=== PATIENT | female | born 1965 | race Caucasian/White ===

== ENCOUNTER 2022-07-14 18:12 | Inpatient (IN) | payer OTHER ==
[~2022-07-14] VITALS: Ht 152.4 cm; Wt 51.6 kg
[2022-07-14] MEDS ORDERED: METOCLOPRAMIDE HCL 5 MG/ML 2 ML VIAL IVP ONE (20:30)
[2022-07-14] MEDS ORDERED: SODIUM CHLORIDE 0.9% 1,000 ML IV ONE (20:30)
[2022-07-14 20:33] LABS: BASOPHILS % (AUTO) 0.8 % (0.0-2.0); EOSINOPHILS % (AUTO) 0.3 % (1.0-6.0); HEMATOCRIT 33.7 % (36-46); HEMOGLOBIN 10.7 g/dL (12.0-16.0); LYMPHOCYTES # (AUTO) 2.1 K/uL (1.0-4.8); LYMPHOCYTES % (AUTO) 25.1 % (22.0-44.0); MEAN CORPUSCULAR HEMOGLOBIN 22.7 pg (26.0-34.0); MEAN CORPUSCULAR HGB CONC 31.7 G/dL (31.0-37.0); MEAN CORPUSCULAR VOLUME 72 fL (80-100); MONOCYTES # (AUTO) 0.7 K/uL (0.1-1.0); MONOCYTES % (AUTO) 8.9 % (2.0-9.0); NEUTROPHILS # (AUTO) 5.4 K/uL (1.8-7.7); NEUTROPHILS % (AUTO) 64.9 % (40.0-70.0); PLATELET COUNT (AUTO) 389 K/uL (150-450); RED BLOOD CELL COUNT(AUTO) 4.72 MIL/uL (4.00-5.20); RED CELL DISTRIBUTION WIDTH 18.4 % (11.5-14.5)
[2022-07-14 20:40] LABS: ANION GAP 9 mmol/L (8-16); CALCIUM, TOTAL 9.1 mg/dL (8.8-10.5); CARBON DIOXIDE 27 mmol/L (22-29); CHLORIDE 103 mmol/L (98-107); CREATININE 0.52 mg/dL (0.60-1.30); GLOMERULAR FILTR. RATE CALC > 60 mL/min (>60); GLUCOSE,RANDOM 98 mg/dL (70-110); POTASSIUM 3.4 mmol/L (3.5-5.1); SODIUM SERUM 139 mmol/L (136-145); UREA NITROGEN, BLOOD 11 mg/dL (7-18)
[2022-07-14 20:46] LABS: ALANINE AMINOTRANSFERASE 35 U/L (12-78); ALKALINE PHOSPHATASE 118 U/L (46-116); ASPARTATE AMINOTRANSFERASE 28 U/L (15-37); BILIRUBIN,TOTAL 0.5 mg/dL (0.1-1.0); LIPASE 136 U/L (73-393); TOTAL PROTEIN, SERUM 7.3 g/dL (6.4-8.2)
[2022-07-14 21:57] LABS: COVID AG,FIA SOURCE NASAL SWAB
[2022-07-14] MEDS ORDERED: POTASSIUM CHLORIDE 10% 40 MEQ/30 ML LIQUID UDCUP PO ONE (22:45)
[2022-07-14] MEDS: HEPARIN SODIUM,PORCINE 5,000 UNITS/ML VIAL SQ SCH (23:11)
[2022-07-14 23:20] LABS: AMPHET/METH SCREEN,URINE POSITIVE (NEGATIVE); APPEARANCE,URINE CLEAR (CLEAR); BARBITURATE SCREEN, URINE NEGATIVE (NEGATIVE); BENZODIAZEPINES SCREEN,URINE POSITIVE (NEGATIVE); CANNABINOID SCREEN,URINE NEGATIVE (NEGATIVE); COCAINE SCREEN,URINE NEGATIVE (NEGATIVE); GLUCOSE, URINE (UA) NEGATIVE (NEGATIVE); METHADONE SCREEN, URINE NEGATIVE (NEGATIVE); OPIATE SCREEN,URINE POSITIVE (NEGATIVE); PHENCYCLIDINE SCREEN,URINE NEGATIVE (NEGATIVE); PROTEIN,URINE NEGATIVE (NEGATIVE); SPECIFIC GRAVITIY, URINE 1.025 (1.003-1.030)
[2022-07-14 23:21] LABS: BILIRUBIN,URINE NEGATIVE (NEGATIVE); KETONES,URINE NEGATIVE (NEGATIVE); LEUKOCYTE ESTERASE ,URINE NEGATIVE (NEGATIVE); NITRATE,URINE NEGATIVE (NEGATIVE); OCCULT BLOOD,URINE NEGATIVE (NEGATIVE); UROBILINOGEN,URINE <=1.0 mg/dL (<=1.0)
[2022-07-14 23:30] LABS: RETICULOCYTE % (AUTO) 1.4 % (0.5-2.3)
[2022-07-14] MEDS: KETOROLAC TROMETHAMINE 15 MG/ML VIAL IVP PRN (23:43)
[2022-07-14] MEDS: ONDANSETRON HCL 4 MG/2 ML VIAL IVP PRN (23:43)
[2022-07-14 23:53] VITALS: BP 157/102
[2022-07-15] MEDS: CloNIDine HCL 0.1 MG TABLET PO PRN ×4 (00:02→23:44)
[2022-07-15 00:07] LABS: % IRON SATURATION 12.5 % (22-44); IRON, SERUM 55 mcg/dL (50-175); TOTAL IRON BINDING CAPACITY 439 mcg/dL (250-450)
[2022-07-15 05:13] VITALS: BP 154/94
[2022-07-15] MEDS: LORazepam 0.5 MG TABLET PO PRN ×3 (05:30→22:27)
[2022-07-15] MEDS ORDERED: LOPERAMIDE HCL 2 MG CAPSULE PO ONE (05:30)
[2022-07-15 07:51] VITALS: BP 164/97
[2022-07-15] MEDS: HEPARIN SODIUM,PORCINE 5,000 UNITS/ML VIAL SQ SCH ×3 (08:13→23:44)
[2022-07-15] MEDS: DOCUSATE SODIUM 100 MG CAPSULE PO SCH ×3 (08:13→20:16)
[2022-07-15] MEDS: ACETAMINOPHEN 325 MG TABLET PO PRN (08:19)
[2022-07-15 10:48] VITALS: BP 122/83
[2022-07-15 15:14] VITALS: BP 119/79
[2022-07-15 20:40] VITALS: BP 156/100
[2022-07-15] MEDS ORDERED: MELATONIN 3 MG TABLET PO PRN (20:45)
[2022-07-15 23:42] VITALS: BP 165/106
[2022-07-15] MEDS: ONDANSETRON HCL 4 MG/2 ML VIAL IVP PRN (23:44)
[2022-07-16] MEDS: KETOROLAC TROMETHAMINE 15 MG/ML VIAL IVP PRN (02:19)
[2022-07-16 05:58] VITALS: BP 139/97
[2022-07-16] MEDS: ACETAMINOPHEN 325 MG TABLET PO PRN (06:17)
[2022-07-16 08:06] VITALS: BP 153/100
[2022-07-16] MEDS: DOCUSATE SODIUM 100 MG CAPSULE PO SCH (08:09)
[2022-07-16] MEDS: HEPARIN SODIUM,PORCINE 5,000 UNITS/ML VIAL SQ SCH (08:09)
[2022-07-16] MEDS ORDERED: NICO-650 TP (13:41)
[2022-07-16] MEDS ORDERED: HYDR-3831 PO (13:42)
== END 2022-07-16 14:30 | DRG 641 ==
LOC: EMS 18:15 → 6S 22:35
PROVIDERS: ADMIT Internal Medicine; ATTEND Internal Medicine
DX: E87.6 Hypokalemia (principal); F19.239 Other psychoactive substance dependence with withdrawal, unspecified; F17.200 Nicotine dependence, unspecified, uncomplicated; Z20.822 Contact with and (suspected) exposure to COVID-19
CPT/HCPCS: 80053; 80307; 81003; 83540; 83550; 83690; 84132; 84484; 85025; 85045; 93005; 99285; G0480; J1644; J1885; J2405; J2765; J7030

== ENCOUNTER 2022-07-17 18:29 | Inpatient (IN) | payer OTHER ==
[~2022-07-17] VITALS: Ht 152.4 cm; Wt 59.3 kg
[~2022-07-17 18:29] MED LIST: HYDR-3831 PO; NICO-650 TP
[2022-07-17] MEDS ORDERED: ACETAMINOPHEN 325 MG TABLET PO PRN (23:30)
[2022-07-17] MEDS ORDERED: ONDANSETRON HCL 4 MG/2 ML VIAL IVP PRN (23:30)
[2022-07-17 23:48] LABS: BASOPHILS % (AUTO) 0.4 % (0.0-2.0); EOSINOPHILS % (AUTO) 0.2 % (1.0-6.0); HEMATOCRIT 41.3 % (36-46); HEMOGLOBIN 13.3 g/dL (12.0-16.0); LYMPHOCYTES # (AUTO) 3.5 K/uL (1.0-4.8); LYMPHOCYTES % (AUTO) 20.3 % (22.0-44.0); MEAN CORPUSCULAR HEMOGLOBIN 22.8 pg (26.0-34.0); MEAN CORPUSCULAR HGB CONC 32.2 G/dL (31.0-37.0); MEAN CORPUSCULAR VOLUME 71 fL (80-100); MONOCYTES # (AUTO) 1.5 K/uL (0.1-1.0); MONOCYTES % (AUTO) 8.8 % (2.0-9.0); NEUTROPHILS % (AUTO) 70.3 % (40.0-70.0); PLATELET COUNT (AUTO) 496 K/uL (150-450); RED BLOOD CELL COUNT(AUTO) 5.83 MIL/uL (4.00-5.20); RED CELL DISTRIBUTION WIDTH 18.2 % (11.5-14.5)
[2022-07-17 23:57] LABS: ANION GAP 12 mmol/L (8-16); CALCIUM, TOTAL 9.8 mg/dL (8.8-10.5); CARBON DIOXIDE 30 mmol/L (22-29); CHLORIDE 95 mmol/L (98-107); CREATININE 0.67 mg/dL (0.60-1.30); GLOMERULAR FILTR. RATE CALC > 60 mL/min (>60); GLUCOSE,RANDOM 108 mg/dL (70-110); POTASSIUM 3.2 mmol/L (3.5-5.1); SODIUM SERUM 137 mmol/L (136-145); UREA NITROGEN, BLOOD 21 mg/dL (7-18)
[2022-07-18] MEDS ORDERED: HEPARIN SODIUM,PORCINE 5,000 UNITS/ML VIAL SQ SCH
[2022-07-18 00:02] LABS: ALANINE AMINOTRANSFERASE 30 U/L (12-78); ALBUMIN 4.8 g/dL (3.4-5.0); ALKALINE PHOSPHATASE 129 U/L (46-116); ASPARTATE AMINOTRANSFERASE 18 U/L (15-37); BILIRUBIN,TOTAL 0.7 mg/dL (0.1-1.0); CREATINE KINASE, TOTAL ONLY 52 U/L (26-192); TOTAL PROTEIN, SERUM 8.7 g/dL (6.4-8.2)
[2022-07-18 00:03] LABS: PROTHROMBIN TIME 10.6 SEC (9.4-11.6)
[2022-07-18 00:17] LABS: B-TYPE NATRIURETIC PEPTIDE 87 pg/mL (0-100)
[2022-07-18] MEDS ORDERED: POTASSIUM CHLORIDE 20 MEQ ER TABLET PO PRN (00:30)
[2022-07-18] MEDS: RINGERS SOLUTION,LACTATED 1,000 ML IV SCH ×2 (00:30→10:38)
[2022-07-18] MEDS ORDERED: RINGERS SOLUTION,LACTATED 1,550 ML IV ONE (00:30)
[2022-07-18] MEDS ORDERED: MAGNESIUM SULFATE 4 GM/WATER 100 ML IV PRN (00:30)
[2022-07-18] MEDS ORDERED: MAGNESIUM SULFATE 2 GM/WATER 50 ML IV PRN (00:30)
[2022-07-18] MEDS ORDERED: MAGNESIUM OXIDE 400 MG TABLET PO PRN (00:30)
[2022-07-18] MEDS ORDERED: POTASSIUM CHL 10 MEQ/WATER 50 ML IV PRN (00:30)
[2022-07-18 01:06] LABS: LACTATE DEHYDROGENASE 205 U/L (81-234)
[2022-07-18] MEDS ORDERED: SODIUM CHLORIDE 0.9% 100 ML ONE (01:32)
[2022-07-18] MEDS ORDERED: IOHEXOL 350 MG/ML 100 ML VIAL ONE (01:33)
[2022-07-18 02:06] LABS: APPEARANCE,URINE CLEAR (CLEAR); BILIRUBIN,URINE NEGATIVE (NEGATIVE); GLUCOSE, URINE (UA) NEGATIVE (NEGATIVE); KETONES,URINE 80-100 mg/dL (NEGATIVE); LEUKOCYTE ESTERASE ,URINE NEGATIVE (NEGATIVE); NITRATE,URINE NEGATIVE (NEGATIVE); OCCULT BLOOD,URINE NEGATIVE (NEGATIVE); PH,URINE 5.5 (5.0-8.0); PROTEIN,URINE 100-200,SEE CONFIRM mg/dL (NEGATIVE); SPECIFIC GRAVITIY, URINE 1.025 (1.003-1.030); UROBILINOGEN,URINE <=1.0 mg/dL (<=1.0)
[2022-07-18 02:23] LABS: SULFOSALICYLIC ACID,URINE 1+ (Negative)
[2022-07-18 02:24] LABS: BACTERIA,URINE None Seen /HPF (None Seen); RBC,URINE None Seen /HPF (0-2); SQUAMOUS EPITHELIAL CELL,UR Few /LPF (None Seen); WBC,URINE None Seen /HPF (0-5)
[2022-07-18] MEDS ORDERED: HydrALAZINE HCL 20 MG/ML VIAL IVP PRN (04:00)
[2022-07-18 04:21] VITALS: BP 175/114
[2022-07-18 08:01] VITALS: BP 133/77
[2022-07-18] MEDS: DOCUSATE SODIUM 100 MG CAPSULE PO SCH ×2 (08:24→21:00)
[2022-07-18] MEDS: ASPIRIN 81 MG CHEWABLE TABLET PO SCH (08:24)
[2022-07-18] MEDS ORDERED: SODIUM CHLORIDE 0.9% 1,000 ML IV ONE (11:30)
[2022-07-18 11:33] VITALS: BP 143/84
[2022-07-18 12:08] LABS: AMPHET/METH SCREEN,URINE POSITIVE (NEGATIVE); BARBITURATE SCREEN, URINE NEGATIVE (NEGATIVE); BENZODIAZEPINES SCREEN,URINE POSITIVE (NEGATIVE); CANNABINOID SCREEN,URINE NEGATIVE (NEGATIVE); COCAINE SCREEN,URINE NEGATIVE (NEGATIVE); METHADONE SCREEN, URINE NEGATIVE (NEGATIVE); OPIATE SCREEN,URINE NEGATIVE (NEGATIVE); PHENCYCLIDINE SCREEN,URINE NEGATIVE (NEGATIVE)
[2022-07-18 15:08] VITALS: BP 134/82
[2022-07-18] MEDS: LORazepam 2 MG/ML VIAL IVP PRN (16:30)
[2022-07-18 20:23] VITALS: BP 141/89
[2022-07-18 23:53] VITALS: BP 116/63
[2022-07-19] MEDS: LORazepam 2 MG/ML VIAL IVP PRN ×3 (00:23→20:37)
[2022-07-19] MEDS: HEPARIN SODIUM,PORCINE 5,000 UNITS/ML VIAL SQ SCH ×4 (00:32→23:59)
[2022-07-19] MEDS: RINGERS SOLUTION,LACTATED 1,000 ML IV SCH ×2 (00:33→11:41)
[2022-07-19 05:02] VITALS: BP 147/94
[2022-07-19] MEDS: KETOROLAC TROMETHAMINE 30 MG/ML VIAL IVP PRN ×2 (08:30→20:37)
[2022-07-19 08:58] VITALS: BP 138/78
[2022-07-19] MEDS: ASPIRIN 81 MG CHEWABLE TABLET PO SCH (09:00)
[2022-07-19] MEDS: DOCUSATE SODIUM 100 MG CAPSULE PO SCH ×2 (09:00→20:36)
[2022-07-19] MEDS ORDERED: LORazepam 2 MG/ML VIAL IM PRN (11:45)
[2022-07-19 11:54] VITALS: BP 113/71
[2022-07-19 11:56] LABS: BASOPHILS % (AUTO) 0.6 % (0.0-2.0); EOSINOPHILS % (AUTO) 0.8 % (1.0-6.0); HEMOGLOBIN 11.5 g/dL (12.0-16.0); LYMPHOCYTES # (AUTO) 3.2 K/uL (1.0-4.8); LYMPHOCYTES % (AUTO) 26.3 % (22.0-44.0); MEAN CORPUSCULAR HEMOGLOBIN 23.2 pg (26.0-34.0); MEAN CORPUSCULAR VOLUME 73 fL (80-100); MONOCYTES # (AUTO) 1.1 K/uL (0.1-1.0); MONOCYTES % (AUTO) 9.1 % (2.0-9.0); NEUTROPHILS # (AUTO) 7.7 K/uL (1.8-7.7); NEUTROPHILS % (AUTO) 63.2 % (40.0-70.0); PLATELET COUNT (AUTO) 359 K/uL (150-450); RED BLOOD CELL COUNT(AUTO) 4.97 MIL/uL (4.00-5.20); RED CELL DISTRIBUTION WIDTH 18.8 % (11.5-14.5)
[2022-07-19 11:59] LABS: ANION GAP 9 mmol/L (8-16); CALCIUM, TOTAL 8.7 mg/dL (8.8-10.5); CARBON DIOXIDE 27 mmol/L (22-29); CHLORIDE 101 mmol/L (98-107); CREATININE 0.64 mg/dL (0.60-1.30); GLOMERULAR FILTR. RATE CALC > 60 mL/min (>60); GLUCOSE,RANDOM 144 mg/dL (70-110); POTASSIUM 3.4 mmol/L (3.5-5.1); SODIUM SERUM 137 mmol/L (136-145); UREA NITROGEN, BLOOD 10 mg/dL (7-18)
[2022-07-19 17:02] VITALS: BP 121/76
[2022-07-19 19:46] VITALS: BP 124/74
[2022-07-20] VITALS (7 sets, daily range): BP systolic 119–150; BP diastolic 78–96
[2022-07-20] MEDS: RINGERS SOLUTION,LACTATED 1,000 ML IV SCH (03:08)
[2022-07-20] MEDS: LORazepam 2 MG/ML VIAL IVP PRN (04:43)
[2022-07-20] MEDS: ASPIRIN 81 MG CHEWABLE TABLET PO SCH (08:39)
[2022-07-20] MEDS: DOCUSATE SODIUM 100 MG CAPSULE PO SCH ×2 (08:39→20:05)
[2022-07-20] MEDS: HEPARIN SODIUM,PORCINE 5,000 UNITS/ML VIAL SQ SCH ×2 (08:39→16:09)
[2022-07-21] MEDS ORDERED: KETOROLAC TROMETHAMINE 15 MG/ML VIAL IVP PRN
[2022-07-21] MEDS: HEPARIN SODIUM,PORCINE 5,000 UNITS/ML VIAL SQ SCH ×4 (00:08→23:29)
[2022-07-21] MEDS: RINGERS SOLUTION,LACTATED 1,000 ML IV SCH (00:09)
[2022-07-21 03:56] VITALS: BP 123/71
[2022-07-21 08:04] VITALS: BP 138/74
[2022-07-21] MEDS: HydrOXYzine HCL 25 MG TABLET PO PRN (09:05)
[2022-07-21] MEDS: DOCUSATE SODIUM 100 MG CAPSULE PO SCH ×2 (09:05→19:59)
[2022-07-21] MEDS: ASPIRIN 81 MG CHEWABLE TABLET PO SCH (09:05)
[2022-07-21] MEDS: BusPIRone HCL 5 MG TABLET PO SCH ×2 (12:18→19:59)
[2022-07-21] MEDS: BUPRENORPHINE HCL/NALOXONE HCL 2-0.5 MG SUBLINGUAL TABLET SL SCH (12:18)
[2022-07-21 19:48] VITALS: BP 95/60
[2022-07-22 07:57] VITALS: BP 111/69
[2022-07-22] MEDS: ASPIRIN 81 MG CHEWABLE TABLET PO SCH (09:37)
[2022-07-22] MEDS: BUPRENORPHINE HCL/NALOXONE HCL 2-0.5 MG SUBLINGUAL TABLET SL SCH (09:37)
[2022-07-22] MEDS: HEPARIN SODIUM,PORCINE 5,000 UNITS/ML VIAL SQ SCH ×3 (09:37→23:35)
[2022-07-22] MEDS: BusPIRone HCL 5 MG TABLET PO SCH ×2 (09:37→20:03)
[2022-07-22] MEDS: DOCUSATE SODIUM 100 MG CAPSULE PO SCH ×2 (09:37→20:05)
[2022-07-22 15:44] VITALS: BP 99/61
[2022-07-22] MEDS: HydrOXYzine HCL 25 MG TABLET PO PRN (18:34)
[2022-07-22 20:15] VITALS: BP 126/67
[2022-07-23] MEDS: HydrOXYzine HCL 25 MG TABLET PO PRN ×3 (05:56→20:39)
[2022-07-23 07:36] VITALS: BP 132/70
[2022-07-23] MEDS: BusPIRone HCL 5 MG TABLET PO SCH ×2 (08:04→20:39)
[2022-07-23] MEDS: DOCUSATE SODIUM 100 MG CAPSULE PO SCH ×2 (08:04→20:39)
[2022-07-23] MEDS: THIAMINE 100 MG TABLET PO SCH (08:04)
[2022-07-23] MEDS: ASPIRIN 81 MG CHEWABLE TABLET PO SCH (08:04)
[2022-07-23] MEDS: MULTIVITAMINS WITH MINERALS, THERAPEUTIC 15 ML UDCUP PO SCH (08:04)
[2022-07-23] MEDS: HEPARIN SODIUM,PORCINE 5,000 UNITS/ML VIAL SQ SCH ×3 (08:06→23:35)
[2022-07-23] MEDS: BUPRENORPHINE HCL/NALOXONE HCL 2-0.5 MG SUBLINGUAL TABLET SL SCH (09:28)
[2022-07-23 20:19] VITALS: BP 106/62
[2022-07-24 07:31] VITALS: BP 122/70
[2022-07-24] MEDS: DOCUSATE SODIUM 100 MG CAPSULE PO SCH (09:00)
[2022-07-24] MEDS ORDERED: BUPR1TAB33 SL (09:42)
[2022-07-24] MEDS ORDERED: BUSP5TAB20 PO (09:43)
[2022-07-24] MEDS: BUPRENORPHINE HCL/NALOXONE HCL 2-0.5 MG SUBLINGUAL TABLET SL SCH (09:47)
[2022-07-24] MEDS: THIAMINE 100 MG TABLET PO SCH (09:47)
[2022-07-24] MEDS: ASPIRIN 81 MG CHEWABLE TABLET PO SCH (09:48)
[2022-07-24] MEDS: HEPARIN SODIUM,PORCINE 5,000 UNITS/ML VIAL SQ SCH (09:48)
[2022-07-24] MEDS: BusPIRone HCL 5 MG TABLET PO SCH (10:24)
[2022-07-24] MEDS: MULTIVITAMINS WITH MINERALS, THERAPEUTIC 15 ML UDCUP PO SCH (10:24)
[2022-07-24] MEDS ORDERED: ASPI81TA39 PO (10:59)
[2022-07-24] MEDS ORDERED: MULT-264 PO (11:01)
[2022-07-24] MEDS ORDERED: THIA100T80 PO (11:01)
== END 2022-07-24 12:30 | DRG 641 ==
LOC: EMS 18:31 → 5S 07-18 02:00 → 6S 07-20 18:30
PROVIDERS: ADMIT Internal Medicine; ATTEND Internal Medicine
DX: E87.6 Hypokalemia (principal); F11.23 Opioid dependence with withdrawal; R65.10 Systemic inflammatory response syndrome (SIRS) of non-infectious origin without acute organ dysfunction; F13.20 Sedative, hypnotic or anxiolytic dependence, uncomplicated; R19.7 Diarrhea, unspecified; F19.10 Other psychoactive substance abuse, uncomplicated; R00.0 Tachycardia, unspecified; I10 Essential (primary) hypertension; F41.1 Generalized anxiety disorder; Y90.0 Blood alcohol level of less than 20 mg/100 ml; F10.90 Alcohol use, unspecified, uncomplicated; Z87.891 Personal history of nicotine dependence; Z91.013 Allergy to seafood; Z79.899 Other long term (current) drug therapy
CPT/HCPCS: 51701; 71045; 74177; 80048; 80053; 80307; 81001; 81002; 82550; 83605; 83615; 83735; 83880; 84100; 84132; 84484; 84703; 85025; 85610; 85730; 87040; 87081; 93005; 99285; G0480; J0360; J1644; J1885; J2060; J2405; J7050; J7120; Q9967; 36415-L1; 36415-TC